=== PATIENT | female | born 1985 | race Two or more races ===

== ENCOUNTER 2024-04-11 08:26 | Emergency (ER) | payer MEDICAID, OTHER ==
[~2024-04-11] VITALS: Ht 170.2 cm; Wt 105.5 kg
--- NOTE | 2024-04-11 09:18 | ED.PDOC ---
Back pain HPI HPI Comments 38 year old female presents pain to the RLE Pain is located to the right anterior patella and radiates down the calf Slipped on the floor wearing socks. States the right foot slipped back and heard 2 cracks This morning had pain with ambulation Pain rated as moderate at rest and 10 with ambulation Chief Complaint: Fall Injury Time Seen by MD: 08:38 Reviewed Notes: Nurses Notes, Medications, Allergies Allergies: Coded Allergies: NO KNOWN ALLERGIES (Unverified , 04/11/24) Home Meds Active Scripts Naproxen (Naproxen) 500 Mg Tab, 500 MG PO BIDPC for 14 Days, #28 TAB 0 Refills Prov:HECTOR LOFTON MEDICAL PRACTICE ADMINISTRATOR 04/11/24 Information Source: Patient Mode of Arrival: Ambulatory Family History Family History: Reviewed,noncontributory to illness Social History Smoker: Non-Smoker Alcohol: Denies ETOH Use Drugs: Denies Drug Use All Other Systems: Reviewed and Negative (Per HPI) Physical Exam General Appearance: No Apparent Distress, Normal HEENT: Normal ENT Inspection, Pharynx Normal, TMs Normal Neck: Full Range of Motion, Non-Tender, Normal, Normal Inspection Respiratory: Chest Non-Tender, Lungs Clear, No Accessory Muscle Use, No Respiratory Distress, Normal Breath Sounds Cardiovascular: No Edema, No JVD, No Murmur, No Gallop, Normal Peripheral Pulses, Regular Rate/Rhythm Breast Exam: Deferred Gastrointestinal: No Organomegaly, Non Tender, No Pulsatile Mass, Normal Bowel Sounds, Soft Genitalia: Deferred Pelvic: Deferred Rectal: Deferred Extremities: No calf tenderness, Normal capillary refill, Normal inspection, Normal range of motion, Non-tender, No pedal edema Musculoskeletal : Location: Right Extremity Location: Knee (Gross abnormality on inspection. No ecchymosis open wounds nor edema. Pain with flexion-extension. Anterior and posterior drawer test negative. Valgus valgus stress test negative) Apperance: Normal Neurologic: Alert, No Motor Deficits, Normal Affect, Normal Mood, No Sensory Deficits Cerebellar Function: Normal Reflexes: Normal Skin: Dry, Normal Color, Warm Lymphatic: No Adenopathy Was a procedure done? Was a procedure done?: No Back Pain Differential Dx Differential Diagnosis: Musculoskeletal Pain, Strain, Other X-Ray, Labs, Meds, VS Vital Signs Date Time Temp Pulse Resp B/P (MAP) Pulse Ox O2 Delivery O2 Flow Rate FiO2 04/11/24 10:15 67 20 97 Room Air 04/11/24 10:15 97.8 67 20 140/59 (86) 97 97.8 04/11/24 08:38 97.8 67 20 140/59 (86) 97 Current Medications Medications (Trade) Dose Ordered Sig/Leila Route Start Time Stop Time Status Last Admin Ketorolac Tromethamine (Toradol Injection) 30 mg ONCE ONCE IM 04/11/24 09:30 04/11/24 09:31 DC 04/11/24 09:47 PATIENT: PEACE RAYMUNDOACCT: [id number]: [id number] : 1985 LOC: ER ROOM / BED: / AGE / SEX: 38 / F ADM STATUS: REG ER SERVICE 6 ORDERING PHYSICIAN: HECTOR LOFTON MEDICAL PRACTICE ADMINISTRATOR PROCEDURE(s): RKNE4 - R KNEE 4V XRAY REASON: fall, pain to the anterior patella ORDER NUMBER(s): [id number], ACCESSION NUMBER(s): [id number] XY R KNEE 4V XRAY INDICATION: fall, pain to the anterior patella TECHNICAL DATA: Frontal, oblique and lateral views were obtained of the right knee. COMPARISON: None FINDINGS: No fracture is identified. Medial, lateral and patellofemoral compartment joint spaces are maintained. Alignment is anatomic. Soft tissues are within normal limits. No joint effusion is demonstrated. IMPRESSION: 1. No acute fracture or dislocation of the right knee. ATED BY: SON PANIAGUA MD DICTATED DATE/TIME: 04/11/24954 SIGNED BY: SON PANIAGUA MD SIGNED DATE/TIME: 04/11/24954 CC: X-Ray, Labs, Meds, VS Comment Presentation most consistent with knee sprain without joint instability. History, Exam, and Workup not consistent with fracture, compartment syndrome, arterial or nerve injury. Rx: R.I.C.E Crutches given Disposition: Discharge. Strict return precautions discussed and understood at bedside. Follow up with primary care doctor within next week for symptom follow up. Time of 1ST Reevaluation: 10:06 Reevaluation 1ST: Improved Patient Education/Counseling: Diagnosis, Treatment Family Education/Counseling: Diagnosis, Treatment Departure 1 Departure Time of Disposition: 10:08 Impression: Primary Impression: Knee sprain Qualified Codes: S83.91XA - Sprain of unspecified site of right knee, initial encounter Disposition: HOME / SELF CARE / HOMELESS Condition: Stable e-Prescriptions Naproxen (Naproxen) 500 Mg Tab 500 MG PO BIDPC for 14 Days, #28 TAB 0 Refills Prov: HECTOR LOFTON NP 04/11/24 Critical Care Note Critical Care Time?: No Stability Stability form required: No Heart Score Heart Score: Heart Score Response (Comments) Value History N/A 0 EKG N/A 0 Age N/A 0 Risk Factors N/A 0 Troponin N/A 0 Total 0 HECTOR LOFTON NP Apr 11, 2024 09:18
[2024-04-11] MEDS: KETOROLAC TROMETH 30 MG/ML 1ML VIAL IM ONE (09:47)
--- NOTE | 2024-04-11 09:57 | DVH ---
XY R KNEE 4V XRAY INDICATION: fall, pain to the anterior patella TECHNICAL DATA: Frontal, oblique and lateral views were obtained of the right knee. COMPARISON: None FINDINGS: No fracture is identified. Medial, lateral and patellofemoral compartment joint spaces are maintained . Alignment is anatomic. Soft tissues are within normal limits. No joint effusion is demonstrated. IMPRESSION: 1. No acute fracture or dislocation of the right knee.
[2024-04-11] MEDS ORDERED: NAPR-746 PO (10:09)
[2024-04-11 10:15] VITALS: BP 140/59; PULSE 67; RESP 20; TEMP 97.8; O2SAT 97
== END 2024-04-11 10:20 | disposition home or self-care (01) ==
LOC: ER 08:26
DX: S83.91XA Sprain of unspecified site of right knee, initial encounter (principal); W01.0XXA Fall on same level from slipping, tripping and stumbling without subsequent striking against object, initial encounter; Y93.89 Activity, other specified; Y92.89 Other specified places as the place of occurrence of the external cause; Y99.8 Other external cause status
CPT/HCPCS: 73564; 96372; 99283; J1885